=== PATIENT | male | born 1990 | race Caucasian/White ===

== ENCOUNTER 2021-10-09 19:09 | Emergency (ER) | payer MEDICAID ==
[~2021-10-09] VITALS: Ht 167.6 cm; Wt 73.0 kg
[2021-10-09 20:00] VITALS: BP 127/81
== END 2021-10-09 23:30 | disposition left against medical advice (07) ==
LOC: ER 19:09
DX: S09.8XXA Other specified injuries of head, initial encounter (principal); Y04.2XXA Assault by strike against or bumped into by another person, initial encounter; Y93.89 Activity, other specified; Y92.480 Sidewalk as the place of occurrence of the external cause
CPT/HCPCS: 99281